=== PATIENT | female | born 1995 | race African-American/Black ===

== ENCOUNTER 2019-11-20 11:16 | Emergency (ER) | payer OTHER ==
--- NOTE | 2019-11-20 12:28 | ER Document Report ---
ED Medical Screen (RME) - General Chief Complaint: Vaginal Bleeding Stated Complaint: VAGINAL BLEEDING Time Seen by Provider: 11/20/19 12:23 - HPI Notes: 11/20/19 12:35 24-year-old female presents emergency room for complaints of vaginal bleeding that started 1 day ago. Patient states that she started with vaginal spotting last night and this morning when she woke up she had copious amount of vaginal bleeding. Patient states she has a Nexplanon which has been in her arm for the last 2 years. Reports nausea and. States she is gone through 1 pad an hour. States she came right to the emergency room when she started noticing vaginal bleeding. Patient reports she is also been a lot of stress lately due to her boyfriend passing away last week unexpectedly. Denies any chest pain, shortness of breath, vomiting, headache, fevers or chills. I have greeted and performed a rapid initial assessment of this patient. A comprehensive ED assessment and evaluation of the patient, analysis of test results and completion of the medical decision making process will be conducted by additional ED providers. PHYSICAL EXAMINATION: CV: s1, s2 regular LUNGS: No respiratory distress abd: No abdominal tenderness, no CVA tenderness appreciated bilaterally - Related Data Allergies/Adverse Reactions: No Known Allergies Allergy (Unverified 11/20/19 12:16) Physical Exam - Vital signs Vitals: Temp Pulse Resp BP Pulse Ox 98.8 F 77 16 116/65 97 11/20/19 11:36 11/20/19 11:36 11/20/19 11:36 11/20/19 11:36 11/20/19 11:36 Course - Vital Signs Vital signs: Temp Pulse Resp BP Pulse Ox 98.8 F 77 16 116/65 97 11/20/19 11:36 11/20/19 11:36 11/20/19 11:36 11/20/19 11:36 11/20/19 11:36
[2019-11-20 13:55] LABS: ABSOLUTE EOSINOPHILS # (AUTO) 0.1 10^3/uL (0.0-0.6); ABSOLUTE LYMPHOCYTES (AUTO) 1.8 10^3/uL (0.5-4.7); ABSOLUTE MONOCYTES (AUTO) 0.5 10^3/uL (0.1-1.4); ABSOLUTE NEUT (AUTO) 6.6 10^3/uL (1.7-8.2); BASOPHILS % (AUTO) 0.3 % (0-2); EOSINOPHILS % (AUTO) 0.8 % (0-6); HEMATOCRIT 42.2 % (36.0-47.0); LYMPHOCYTES % (AUTO) 20.2 % (13-45); MEAN CORPUSCULAR HEMOGLOBIN 27.8 pg (27.0-33.4); MEAN CORPUSCULAR HGB CONC 33.3 g/dL (32.0-36.0); MEAN CORPUSCULAR VOLUME 84 fl (80-97); MONOCYTES % (AUTO) 5.7 % (3-13); PLATELET COUNT 240 10^3/uL (150-450); RED BLOOD COUNT 5.05 10^6/uL (3.72-5.28); RED CELL DISTRIBUTION WIDTH 13.9 % (11.5-14.0); TOTAL CELLS COUNTED % (AUTO) 100 %
[2019-11-20 14:10] LABS: APPEARANCE,URINE SLIGHTLY-CLOUDY; BILIRUBIN,URINE NEGATIVE (NEGATIVE); COLOR,URINE YELLOW; GLUCOSE, URINE NEGATIVE (NEGATIVE); KETONES,URINE NEGATIVE (NEGATIVE); LEUKOCYTE ESTERASE,URINE NEGATIVE (NEGATIVE); NITRITE,URINE NEGATIVE (NEGATIVE); PROTEIN,URINE 100 mg/dL (NEGATIVE); URINE SPECIFIC GRAVITY 1.024; UROBILINOGEN,URINE NEGATIVE mg/dL (<2.0)
[2019-11-20 14:20] LABS: ALBUMIN 4.5 g/dL (3.5-5.0); ALKALINE PHOSPHATASE 104 U/L (38-126); ANION GAP 9 (5-19); ASPARTATE AMINO TRANSFERASE 18 U/L (14-36); BILIRUBIN,TOTAL 0.8 mg/dL (0.2-1.3); BLOOD UREA NITROGEN 9 mg/dL (7-20); CALCIUM 9.7 mg/dL (8.4-10.2); CARBON DIOXIDE 24 mmol/L (22-30); CHLORIDE 105 mmol/L (98-107); GLUCOSE 91 mg/dL (75-110); POTASSIUM 4.2 mmol/L (3.6-5.0); TOTAL PROTEIN 8.3 g/dL (6.3-8.2)
--- NOTE | 2019-11-20 14:41 | RADIOLOGY REPORT (SQ) ---
EXAM DESCRIPTION: U/S NON-OB PELVIS TV W/O DOP IMAGES COMPLETED DATE/TIME: 11/20/2019 2:27 pm REASON FOR STUDY: vaginal bleeding x 1 day COMPARISON: None. TECHNIQUE: Dynamic and static grayscale images acquired of the pelvis via transvaginal approach and recorded on PACS. Additional selected color Doppler and spectral images recorded. LIMITATIONS: None. FINDINGS: UTERUS: Contour normal. No mass. ENDOMETRIAL STRIPE: No focal or generalized thickening. No masses. CERVIX: Trace fluid is seen within the endocervical canal. RIGHT OVARY AND DOPPLER: Normal size. No worrisome masses. Normal arterial vascular flow without evid ence for torsion. LEFT OVARY AND DOPPLER: The left ovary is expanded by a 4.4 x 3.0 x 2.9 cm complicated cyst. Normal arterial vascular flow without evidence for torsion. FREE FLUID: None noted. OTHER: No other significant finding. MEASUREMENTS: UTERUS: 7.3 x 4.0 x 3.3 cm ENDOMETRIAL STRIPE: 0.5 cm RIGHT OVARY: 2.6 x 2.4 x 1.7 cm LEFT OVARY: 6.5 x 4.8 x 5.0 cm IMPRESSION: No uterine findings to correlate with the patient's reported vaginal bleeding. Incident al note is made of a 4.4 cm probable hemorrhagic cyst expanding the left ovary. Recommend repeat son ographic evaluation in 10 to 12 weeks to assess for resolution. TECHNICAL DOCUMENTATION: JOB ID: [id number] 2010 [employer]- All Rights Reserved Rev-10/21 Reading location - IP/workstation name: [email or web address]
--- NOTE | 2019-11-20 17:29 | ER Document Report ---
ED General - General Chief Complaint: Vaginal Bleeding Stated Complaint: VAGINAL BLEEDING Time Seen by Provider: 11/20/19 12:23 Primary Care Provider: RICHARD VARGAS MD [ACTIVE STAFF] - Follow up as needed WILLIS CAMPOS MD [ACTIVE STAFF] - Follow up as needed Mode of Arrival: Ambulatory Information source: Patient - HPI Onset: Yesterday Onset/Duration: Sudden Quality of pain: Achy Severity: Moderate Pain Level: 1 Associated symptoms: Other - Anxiety, Stress Exacerbated by: Denies Relieved by: Denies Similar symptoms previously: No Recently seen / treated by doctor: No Notes: @4 year old female with a 2 year history of having Nexplanon here in the ER for vaginal bleeding. The patient noticed some vaginal spotting last night but when she woke up today there was blood all over her cloths and bedding. The patient denies any recent vaginal trauma, dizziness, weakness, urinary symptoms, vaginal discharge, flank pain, significant pelvic or abdominal pain. The patient has been under a lot of stress recently and she feels this could be contributing. The patient says the last time she had a period was about 2 years ago prior to the Nexplanon being placed. The patient is visiting from [place] and she has no ANESTHESIOLOGY CRNA at the moment. - Related Data Allergies/Adverse Reactions: No Known Allergies Allergy (Unverified 11/20/19 12:16) Past Medical History - General Information source: Patient - Social History Smoking Status: Never Smoker Frequency of alcohol use: Rare Family History: Reviewed & Not Pertinent Patient has homicidal ideation: No Review of Systems - Review of Systems Constitutional: No symptoms reported EENT: No symptoms reported Cardiovascular: No symptoms reported Respiratory: No symptoms reported Gastrointestinal: No symptoms reported Genitourinary: No symptoms reported Female Genitourinary: Vaginal bleeding Musculoskeletal: No symptoms reported Skin: No symptoms reported Hematologic/Lymphatic: No symptoms reported Neurological/Psychological: No symptoms reported -: Yes All other systems reviewed and negative Physical Exam - Vital signs Vitals: Temp Pulse Resp BP Pulse Ox 98.8 F 77 16 116/65 97 11/20/19 11:36 11/20/19 11:36 11/20/19 11:36 11/20/19 11:36 11/20/19 11:36 - Notes Notes: GENERAL: Well-appearing, well-nourished and in no acute distress. HEAD: Atraumatic, normocephalic. EYES: Pupils equal round and reactive to light, extraocular movements intact, s clera anicteric, conjunctiva are normal. ENT: External ears normal, nares patent, oropharynx clear without exudates. Moist mucous membranes. NECK: Normal range of motion, supple without lymphadenopathy or JVD. LUNGS: Breath sounds clear to auscultation bilaterally and equal. No wheezes rales or rhonchi. HEART: Regular rate and rhythm without murmurs, rubs or gallops. ABDOMEN: Soft, nontender, normoactive bowel sounds. No guarding, no rebound. No masses appreciated. PELVIC: Patient deferred EXTREMITIES: Normal range of motion, no pitting or edema. No clubbing or cyanosis. NEUROLOGICAL: Cranial nerves II through XII grossly intact. Normal speech, normal gait. PSYCH: Normal mood, normal affect. SKIN: Warm, Dry, normal turgor, no rashes or lesions noted. Course - Re-evaluation Re-evalutation: 11/20/19 17:38 The patient is here for heavy vaginal bleeding. She is not and her labs including an H/H are within normal limits. Pelvic US which was ordered from triage shows no cause of her bleeding but an incidental left sided ovarian cyst. The patient has Nexplanon and she has not had bleeding like this before. Patient offered a pelvic exam to rule out an anatomical cause of her bleeding but she refused this and feels it is likely due to a hormonal issue coupled with recent life stressors. Patient told she needs to follow up with an ANESTHESIOLOGY CRNA Doctor as soon as possible and she needs to have a pelvic exam by someone in the near future. The patient agrees with this plan since she declined a pelvic exam in the ER today. - Vital Signs Vital signs: Temp Pulse Resp BP Pulse Ox 98.6 F 71 16 117/71 100 11/20/19 16:02 11/20/19 16:02 11/20/19 16:02 11/20/19 16:02 11/20/19 16:02 - Laboratory Result Diagrams: 11/20/19 13:38 11/20/19 13:38 Laboratory results interpreted by me: 11/20/19 11/20/19 13:38 13:38 Total Protein 8.3 H Urine Protein 100 H Urine Blood LARGE H - Diagnostic Test Radiology reviewed: Image reviewed, Reports reviewed Discharge - Discharge Clinical Impression: Vaginal bleeding, Stress Condition: Stable Disposition: HOME, SELF-CARE Instructions: Anxiety ([facility]), Vaginal Bleeding ([facility]) Additional Instructions: Follow up with an ANESTHESIOLOGY CRNA Doctor as soon as possible. Tell the ANESTHESIOLOGY CRNA Doctor you follow up with about your vaginal bleeding. You had blood work and an ultrasound in the ER which were unremarkable except for a left sided hemorrhagic ovarian cyst. Return to an ER for persistent vaginal bleeding, dizziness, weakness or if you are worse in anyway. You will need to have a pelvic exam performed if your vaginal bleeding continues. Use Hydroxyzine for anxiety and trouble sleeping. Prescriptions: Hydroxyzine Pamoate [Vistaril 25 mg Capsule] 25 mg PO BID #20 capsule Referrals: WILLIS CAMPOS MD [ACTIVE STAFF] - Follow up as needed RICHARD VARGAS MD [ACTIVE STAFF] - Follow up as needed
[2019-11-20 17:38] VITALS: BP 117/63
== END 2019-11-20 17:36 | disposition home or self-care (01) ==
LOC: ER 11:16
DX: N93.9 Abnormal uterine and vaginal bleeding, unspecified (principal); N83.202 Unspecified ovarian cyst, left side; F43.9 Reaction to severe stress, unspecified; F41.9 Anxiety disorder, unspecified; Z97.5 Presence of (intrauterine) contraceptive device
CPT/HCPCS: 36415; 76830; 80053; 81001; 81025; 83690; 85025; 99284